=== PATIENT | female | born 1985 | race Caucasian/White ===

== ENCOUNTER 2020-06-30 05:08 | Inpatient (IN) | payer OTHER ==
--- NOTE | 2020-06-30 06:21 | HP ---
History & Physical Update - History History: No Change - Physical Physical: No Change - Assessment Assessment: No Change - Plan Plan: No Change (No change in HP)
[2020-06-30] MEDS ORDERED: CEFAZOLIN 2 GM in DEXTROSE 5%-WATER - 100 ML IVPB ONE (07:00)
[2020-06-30] MEDS ORDERED: PHENAZOPYRIDINE HCL 100 MG TABLET (FP) PO ONE (07:00)
[2020-06-30] MEDS ORDERED: ceFAZolin SODIUM 1 GM VIAL ONE ×2 (07:59→16:42)
[2020-06-30] MEDS ORDERED: PHENAZOPYRIDINE HCL 100 MG TABLET (FP) ONE (07:59)
[2020-06-30] MEDS ORDERED: ROPIVACAINE HCL 0.5% 30ML VIAL ONE (10:17)
[2020-06-30] MEDS ORDERED: BUPIVACAINE HCL 100 ML ONE (10:17)
[2020-06-30] MEDS ORDERED: MIDAZOLAM HCL 2 MG/2 ML SINGLE DOSE VIAL ONE ×2 (10:18)
[2020-06-30] MEDS ORDERED: LIDOCAINE HCL/PF 2% SDV 5ML VIAL ONE (10:54)
[2020-06-30] MEDS ORDERED: fentaNYL CITRATE 250 MCG/5 ML VIAL ONE (10:54)
[2020-06-30] MEDS ORDERED: DEXAMETHASONE SOD PHOSPHATE 4 MG/1 ML VIAL ONE (10:54)
[2020-06-30] MEDS ORDERED: KETOROLAC TROMETHAMINE 30 MG/1 ML VIAL ONE ×2 (10:54→16:42)
[2020-06-30] MEDS ORDERED: ROCURONIUM BROMIDE 50 MG/5 ML SYRINGE ONE ×2 (10:54)
[2020-06-30] MEDS ORDERED: PROPOFOL 20 ML ONE (10:54)
[2020-06-30] MEDS ORDERED: ceFAZolin SODIUM 1 GM VIAL IVPB ONE (11:05)
[2020-06-30] MEDS ORDERED: NEOSTIGMINE METHYLSULFATE 0.5 MG/ML - 10 ML MDV ONE (12:48)
[2020-06-30] MEDS ORDERED: GLYCOPYRROLATE 0.2 MG/1 ML VIAL ONE ×2 (12:51)
[2020-06-30] MEDS ORDERED: ACETAMINOPHEN 1000 MG/100 ML VIAL (NON FORMULARY) IVPB ONE (13:11)
[2020-06-30] MEDS ORDERED: oxyCODONE HCL 5 MG TABLET PO PRN (13:11)
[2020-06-30] MEDS ORDERED: ONDANSETRON 4 MG/2 ML VIAL IVPUSH PRN ×2 (13:11→13:14)
[2020-06-30] MEDS ORDERED: PROMETHAZINE HCL 25 MG/1 ML VIAL IVPUSH PRN (13:11)
[2020-06-30] MEDS ORDERED: HYDROmorphone HCL CARPU-JECT 2 MG/1 ML DISP.SYRIN IVPUSH PRN (13:13)
[2020-06-30] MEDS ORDERED: BISACODYL 5 MG TABLET.DR (FP) PO PRN (13:14)
[2020-06-30] MEDS ORDERED: DOCUSATE SODIUM 100 MG CAPSULE (FP) PO PRN (13:14)
[2020-06-30] MEDS ORDERED: SODIUM CHLORIDE 1,000 ML IV SCH (13:15)
--- NOTE | 2020-06-30 13:27 | SURG ---
Surgery Trolley Wire Installer Note Trolley Wire Installer: Nguyen Ribera PA-C (Suzy) Date of Service: 06/30/20 Diagnosis: Pelvic pain, menorrhagia Procedure: Operation: Robotic assisted laparoscopic hysterectomy, left oophorectomy I was present for the entirety of the operative procedure. For further detail, please refer to operative report.
--- NOTE | 2020-06-30 13:27 | OP ---
Operative Note - Note: Operative Date: 06/30/20 Pre-Operative Diagnosis: Pelvic pain, menorrhagia Operation: Robotic assisted laparoscopic hysterectomy, left oophorectomy Findings: as dictated Post-Operative Diagnosis: Same as Pre-op Surgeon: Nelia Ferguson [facility] Case Manager: Nguyen Ribera Anesthesiologist/NATURAL SCIENCES DEPARTMENT CHAIR: Russell Salmeron Anesthesia: General, Regional Specimens Removed: uterus and left ovary Estimated Blood Loss (mls): 50 (ml) Drains, Volume Out (mls): 150 (ml orange urine (pyridium)) Fluid Volume Replaced (mls): 1 (L LR) Operative Report Dictated: Yes
--- NOTE | 2020-06-30 14:03 | OP ---
DATE OF OPERATION: 06/30/2020 PREOPERATIVE DIAGNOSIS: Leiomyomatous uterus, pelvic pain, adenomyosis. OPERATION: Laparoscopic total robotic hysterectomy and bilateral salpingectomy and right oophorectomy. POSTOPERATIVE DIAGNOSIS: Leiomyomatous uterus, pelvic pain, adenomyosis. SURGEON: Abbie Fairchild MD INSTRUCTOR INDUSTRIAL DESIGN: LEON Lynn ANESTHESIA: General. ANESTHESIOLOGIST: Russell Salmeron MD FINDINGS: Leiomyomatous uterus, multiple myomas noted on the uterus. Some omental adhesions were noted from the omentum to the right tube previous rocio and tension noted on the left ovary. PROCEDURE IN DETAIL: Patient was taken to the operating room, placed in the dorsal lithotomy position, prepped and draped in the usual sterile fashion. Timeout was performed in accordance with hospital regulation. Speculum was placed in the vagina. Anterior lip of the cervix was grasped with single-tooth tenaculum. Cervix was then dilated to accommodate the uterine manipulator. Villalba catheter was then inserted into the bladder. Attention was then drawn to the umbilicus where an 8-mm umbilical incision was made. Veress needle was inserted into the cavity. Approximately 3 to 4 L of CO2 was insufflated in the cavity. Veress needle was then removed and an 8-mm trocar was then inserted. Trocars were inserted on the left side, 2 trocars, one in the upper abdomen 5-mm. Incision was made and an AirSeal cannula was then inserted and then on the left parallel to the umbilicus a left 8-mm incision was made and robotic trocar was then inserted under direct visualization after laparoscope was attached. Two trocars were then inserted on the right side parallel to each other about 10 cm apart from the umbilical incision. Eight-mm incisions were made and trocars were inserted under direct visualization. Placement of trocars was then confirmed. Da Chivo robot was then side docked to the patient's bedside. The robotic arms were then inserted onto the trocars. Instruments were then placed. Tenaculum was placed in 4; Endo Destini were placed in 3; vessel sealer was then placed in 1 and camera in 2. Patient had been placed in steep Trendelenburg prior to docking. Attention was then drawn to the console. Control of the console was done. Visualization revealed a leiomyomatous uterus. Multiple myomas were seen. The omental adhesion was seen going to the right ovary which was coagulated and cut. The left ovary was noted to be on tension. The left infundibular pelvic ligament was identified and clamped and cut using the vessel sealer. Uterine artery was then clamped and cut on the left. Cardinal ligaments were then identified and clamped and cut using vessel sealer down to the level of the cervix. Bladder flap was then entered and bladder was bluntly dissected out of the operative field. Same procedure was repeated on the right side. The uterina ovarian ligament was identified and clamped and cut. Ovary on both the left and right was noted to be normal. Patient desired to remove the left ovary. Right ovary remained. Uterine ovarian ligament was identified and clamped and cut using vessel sealer. Uterine arteries were identified and clamped and cut. Cardinal ligaments were identified clamped and cut down to the level of the cervix. Bladder had been dissected also on the right side. Endo Destini were then used to enter the vagina and circumferential incision was then made around the cervix. The 2-0 V-Loc suture was then entered into the abdomen after the uterus was removed with the left ovary attached. Tubes were also removed. The pelvis was cleaned out for blood and the da Chivo robot was used to close the vagina in a continuous fashion using 2-0 V-Loc suture. The ureters were identified and found to have peristalsis. Hemostasis was achieved. All instruments were then removed. The incisions were then closed using 3-0 Vicryl in a subcuticular fashion. Wound was washed and dressed. The patient tolerated procedure well and was taken to recovery room in stable condition. Estimated blood loss 50 mL. ABBIE FAIRCHILD M.D. [id number]
[2020-06-30] MEDS ORDERED: MORPHINE SULFATE 2 MG/ML VIAL IVPUSH PRN (15:14)
[2020-06-30] MEDS ORDERED: HYDROmorphone HCl 2 MG/ML VIAL ONE (15:32)
[2020-06-30] MEDS ORDERED: HYDROmorphone HCl 2 MG/ML VIAL IVPUSH PRN (16:28)
[2020-06-30] MEDS: KETOROLAC TROMETHAMINE 30 MG/1 ML VIAL IVPUSH SCH ×2 (16:50→23:12)
[2020-06-30] MEDS: CEFAZOLIN 1 GM/D5W 1 GM/50 ML BAG IVPB SCH ×2 (16:50→17:49)
[2020-06-30 19:38] LABS: HEMATOCRIT 29.6 % (32.4-45.2); HEMOGLOBIN 9.4 GM/dL (10.7-15.3); MCH 24.1 pg (25.7-33.7); MCHC 31.7 g/dl (32.0-36.0); MEAN PLT VOLUME 9.1 fl (7.5-11.1); PLATELET COUNT 180 K/MM3 (134-434); RDW 25.9 % (11.6-15.6); WHITE BLOOD COUNT 10.1 K/mm3 (4.0-10.0)
[2020-06-30 20:06] LABS: BLOOD UREA NITROGEN 7.6 mg/dL (7-18); CALCIUM 7.6 mg/dL (8.5-10.1); CREATININE 0.6 mg/dL (0.55-1.3); POTASSIUM 4.3 mmol/L (3.5-5.1)
[2020-06-30] MEDS: ACETAMINOPHEN 1000 MG/100 ML VIAL (NON FORMULARY) IVPB SCH (21:08)
[2020-06-30] MEDS: SIMETHICONE 80 MG TAB.CHEW (FP) PO PRN (22:39)
[2020-07-01] MEDS: CEFAZOLIN 1 GM/D5W 1 GM/50 ML BAG IVPB SCH ×2 (01:55→08:59)
[2020-07-01] MEDS: ACETAMINOPHEN 1000 MG/100 ML VIAL (NON FORMULARY) IVPB SCH ×3 (03:13→14:39)
[2020-07-01] MEDS: SIMETHICONE 80 MG TAB.CHEW (FP) PO PRN ×3 (04:24→19:07)
[2020-07-01] MEDS: KETOROLAC TROMETHAMINE 30 MG/1 ML VIAL IVPUSH SCH (05:28)
[2020-07-01 08:03] LABS: HEMATOCRIT 25.2 % (32.4-45.2); HEMOGLOBIN 8.1 GM/dL (10.7-15.3); MCH 24.4 pg (25.7-33.7); MCHC 32.1 g/dl (32.0-36.0); MEAN PLT VOLUME 8.5 fl (7.5-11.1); PLATELET COUNT 156 K/MM3 (134-434); RBC 3.32 M/mm3 (3.60-5.2); RDW 25.6 % (11.6-15.6); WHITE BLOOD COUNT 7.4 K/mm3 (4.0-10.0)
[2020-07-01] MEDS ORDERED: oxyCODONE HCL 5 MG TABLET PO PRN ×3 (08:21→16:09)
[2020-07-01 08:26] LABS: BLOOD UREA NITROGEN 4.8 mg/dL (7-18); CALCIUM 7.9 mg/dL (8.5-10.1); CREATININE 0.6 mg/dL (0.55-1.3); POTASSIUM 3.9 mmol/L (3.5-5.1)
[2020-07-01] MEDS: ENOXAPARIN NA (PORCINE) 40 MG/0.4 ML DISP.SYRIN SQ SCH (08:59)
[2020-07-01] MEDS ORDERED: BISACODYL 10 MG SUPP.RECT PR PRN (09:43)
--- NOTE | 2020-07-01 09:52 | DS ---
Physical Exam: SUBJECTIVE: . Pt states that she did pass flatus. She complains for abd pain/left shoulder pain. No nausea or emesis, tolerting a diet. OBJECTIVE: Vital Signs Period Temp Pulse Resp BP Sys/Mcmullen Pulse Ox Last 24 Hr 98.0 F-98.8 F 79-110 18-18 118-150/61-111 98-100 PHYSICAL EXAM GEN: A&0x3, NAD ABD: soft, non-distended, inc tenderness. Inc c/d/i LABS CBC,CMP WBC 7.4 K/mm3 (4.0-10.0) 07/01/20 07:10 RBC 3.32 M/mm3 (3.60-5.2) L 07/01/20 07:10 Hgb 8.1 GM/dL (10.7-15.3) L 07/01/20 07:10 Hct 25.2 % (32.4-45.2) L 07/01/20 07:10 MCV 76.0 fl (80-96) L 07/01/20 07:10 MCH 24.4 pg (25.7-33.7) L 07/01/20 07:10 MCHC 32.1 g/dl (32.0-36.0) 07/01/20 07:10 RDW 25.6 % (11.6-15.6) H 07/01/20 07:10 Plt Count 156 K/MM3 (134-434) 07/01/20 07:10 MPV 8.5 fl (7.5-11.1) 07/01/20 07:10 Sodium 139 mmol/L (136-145) 07/01/20 06:00 Potassium 3.9 mmol/L (3.5-5.1) 07/01/20 06:00 Chloride 108 mmol/L (98-107) H 07/01/20 06:00 Carbon Dioxide 25 mmol/L (21-32) 07/01/20 06:00 Anion Gap 6 MMOL/L (8-16) L 07/01/20 06:00 BUN 4.8 mg/dL (7-18) L 07/01/20 06:00 Creatinine 0.6 mg/dL (0.55-1.3) 07/01/20 06:00 Est GFR (CKD-EPI)AfAm 135.91 07/01/20 06:00 Est GFR (CKD-EPI)NonAf 117.26 07/01/20 06:00 Random Glucose 74 mg/dL (74-106) 07/01/20 06:00 Calcium 7.9 mg/dL (8.5-10.1) L 07/01/20 06:00 HOSPITAL COURSE: The patient was admitted to the Med-Surg Unit s/p open robotic assisted laparscopic hysterectomy and left oophorectomy Pain management was achieved with a narcotic and non-narcotic oral and IV regimen. POD #0, the patients mckinnon was removed and she voided without difficulty. Hemoglobin and hematocrit were monitored as well as vitals and remained stable throughout admission. Klarissa-operative IV ABX were administered. DVT prophylaxis was achieved with Lovenox 40mg qd, SCDs and early ambulation. On day of discharge she was tolerating a oral diet and passing flatus. The patient ambulated the halls without issue. Narcotic scripts were checked with [facility] prior to escribe. The discharge instructions and an oral pain management plan were reviewed with the patient. All questions answered. Above plan discussed with Dr. Ferguson and agreed. Date of Admission:06/30/20 Date of Discharge: 07/01/20 Minutes to complete discharge: 20
--- NOTE | 2020-07-01 10:27 | PN ---
Progress Note (short form) - Note Progress Note: Surgery: Pt states that she hasn't passed flatus. She tolerated clear liquids yesterday and ate a small portion of her breakfast. Arellano removed and voiding without difficulty. Vital Signs Period Temp Pulse Resp BP Sys/Mcmullen Pulse Ox Last 24 Hr 97.6 F-98.3 F 60-76 12-18 116-163/42-100 100-100 GEN: A&0x3, NAD ABD: soft, non-distended, inc tenderness. Inc c/d/i LE: no calf tenderness or swelling noted b/l CBC, BMP 07/01/20 07:10 07/01/20 06:00 A/p: 35 yo female s/p robotic assisted laparscopic hysterectomy and left oophorectomy, POD#1 OOB to chair and ambulate IV/oral pain medications, able to take crushed oxycodone Simethicon for pass, pt not having nay bowel function. No flatus or BM D/w Dr. Ferguson. Pt for hospital admission, awaiting bowel function
--- NOTE | 2020-07-01 11:03 | PN ---
Progress Note (short form) - Note Progress Note: Anesthesia postop note 35 y/o f s/p GA/TAP for robotic hysterectomy POD#1, vss, aaox3, pain fairly well controlled, no other complaints. No anesthesia complications.
[2020-07-01 12:33] VITALS: BMI 31.7
[2020-07-01] MEDS ORDERED: oxyCODONE HCL 5 MG TABLET PO ONE (16:30)
[2020-07-01] MEDS: oxyCODONE HCL 5 MG TABLET PO PRN (19:07)
[2020-07-01] MEDS ORDERED: ZOLPIDEM TARTRATE 5 MG TABLET PO PRN (20:22)
--- NOTE | 2020-07-01 20:22 | PN ---
Progress Note (short form) - Note Progress Note: Called to evaluate due to sharp pain by liver Pt passing gas ambulating and voiding + muscular tenderness by liver abd soft no tenderness Ass diaphragm pain secondary to CO2 Plan ambulate Oxy cod mylicon cbc basiic chem stat
[2020-07-01] MEDS ORDERED: ACETAMINOPHEN 650 MG/20.3 ML ORAL SOLUTION (CUPS) PO PRN (21:00)
[2020-07-01 21:09] LABS: HEMATOCRIT 25.9 % (32.4-45.2); HEMOGLOBIN 8.3 GM/dL (10.7-15.3); MCH 24.3 pg (25.7-33.7); MCHC 31.9 g/dl (32.0-36.0); MEAN CELL VOLUME 76.3 fl (80-96); MEAN PLT VOLUME 8.9 fl (7.5-11.1); PLATELET COUNT 161 K/MM3 (134-434); RDW 25.5 % (11.6-15.6); WHITE BLOOD COUNT 8.1 K/mm3 (4.0-10.0)
[2020-07-01 21:33] LABS: BLOOD UREA NITROGEN 5.6 mg/dL (7-18); CALCIUM 8.1 mg/dL (8.5-10.1); CREATININE 0.6 mg/dL (0.55-1.3)
[2020-07-01 22:10] LABS: ANISOCYTOSIS 1+; MACROCYTOSIS 0
[2020-07-02] MEDS: SIMETHICONE 80 MG TAB.CHEW (FP) PO PRN ×3 (02:17→09:17)
[2020-07-02] MEDS: oxyCODONE HCL 5 MG TABLET PO PRN ×3 (06:00→14:25)
[2020-07-02] MEDS: ENOXAPARIN NA (PORCINE) 40 MG/0.4 ML DISP.SYRIN SQ SCH (09:17)
[2020-07-02 13:35] VITALS: BP 125/73; PULSE 100; TEMP 98
--- NOTE | 2020-07-04 18:11 | PATH ---
Surgical Pathology Report Patient Name: DUANE WATSON [facility]. Rec. #: [id number] /Age/Gender: 1985 (Age: 35) / F Account: [id number] Location: [address] [place] [address]/[facility] Taken: 06/30/2020 Received: 06/30/2020 Reported: 07/04/2020 Physicians: Nelia Ferguson M.D. Specimen(s) Received UTERUS, CERVIX, BILATERAL FALLOPIAN TUBES, LEFT OVARY Clinical History Pelvic pain, menorrhagia, polyps Final Diagnosis UTERUS, CERVIX, BILATERAL FALLOPIAN TUBES, LEFT OVARY, LAPAROSCOPIC TOTAL HYSTERECTOMY, BILATERAL SALPINGECTOMY, LEFT OOPHORECTOMY: 187 G UTERUS. LEIOMYOMA(TA), INTRAMURAL, AND SUBSEROSAL. SECRETORY ENDOMETRIUM. CERVIX WITH FOCAL CHRONIC CERVICITIS. LEFT OVARY WITH MULTIPLE CYSTIC FOLLICLES. BILATERAL STUMPS/REMNANTS OF FALLOPIAN TUBES WITHOUT SIGNIFICANT PATHOLOGIC FINDINGS. Electronically Signed Felicia Miles M.D. Gross Description Received in formalin labeled "uterus, cervix, bilateral fallopian tubes, left ovary," is a 187 g uterus with an attached cervix. There is a left ovary present as well as bilateral fallopian tube stumps. The specimen measures 9.5 cm from superior to inferior, 7 cm from left to right and 5 cm from anterior to posterior. The serosa is reilly-choudhary and smooth with multiple bulging subserosal nodules. The attached cervix is 2.5 cm in length and 2.5 cm in diameter. The ectocervix is reilly-pink, smooth and glistening. The endocervix is unremarkable. The endometrial cavity measures 4.5 cm in length and 2.5 cm from cornu to cornu. The endometrium is reilly-red, thickened, measuring up to 0.4 cm in thickness. The myometrium displays abundant intramural nodules, measuring up to 3 cm in greatest dimension. The cut surface of the nodules is reilly and rubbery with whorled architecture. No areas of hemorrhage or necrosis are identified. The remaining myometrium is reilly-pink and averages 2.5 cm in thickness. The left fallopian tube stump measures 2.5 cm in length. No fimbria are present. The outer surface is reilly-choudhary and smooth. Sectioning reveals an unremarkable lumen. The left ovary measures 2.3 x 1.7 x 1.3 cm. The outer surface is reilly-choudhary and smooth. Sectioning reveals multiple small cysts, measuring up to 0.4 cm in greatest dimension. The remaining ovarian parenchyma is unremarkable. The right fallopian tube stump measures 1.5 cm in length. No fimbria are present. The outer surface is reilly-choudhary and smooth. Sectioning reveals an unremarkable lumen. Early Breastfeeding Care Specialist sections are submitted in 13 cassettes as follows: 1-anterior cervix; 2-posterior cervix; 9-2-vijfanir endomyometrium; 6-8-whkdxztpx endomyometrium; 7-subserosal nodules; 4-33-hjosydkxgg nodules; 11-cross sections of left fallopian tube stump; 12-left ovary; 13-cross sections of right fallopian tube stump. 07/01/2020 [facility]07/01/2020
== END 2020-07-02 16:00 | disposition home or self-care (01) | DRG 519 ==
LOC: JASUSAT 05:08 → J6S 17:43 → JASUSAT 17:44 → J6S 17:44
PROVIDERS: ADMIT Obstetrics & Gynecology; ATTEND Obstetrics & Gynecology
PROC: 8E0W4CZ Robotic Assisted Procedure of Trunk Region, Percutaneous Endoscopic Approach (ICD-10-PCS; 2020-06-30)
PROC: 0UT94ZZ Resection of Uterus, Percutaneous Endoscopic Approach (ICD-10-PCS; principal; 2020-06-30 08:30)
PROC: 0UT04ZZ Resection of Right Ovary, Percutaneous Endoscopic Approach (ICD-10-PCS; 2020-06-30 08:30)
PROC: 0UT74ZZ Resection of Bilateral Fallopian Tubes, Percutaneous Endoscopic Approach (ICD-10-PCS; 2020-06-30 08:30)
DX: D25.9 Leiomyoma of uterus, unspecified (principal); N92.0 Excessive and frequent menstruation with regular cycle; N80.0 Endometriosis of uterus; R10.2 Pelvic and perineal pain
CPT/HCPCS: 36415; 80048; 84703; 85025; 85027; 88307-TC; 94760; J0131